=== PATIENT | female | born 1970 | race Caucasian/White ===

== ENCOUNTER 2017-04-12 09:35 | Emergency (ER) | payer BC ==
[2017-04-12 11:08] VITALS: BP 125/88
[2017-04-12] MEDS ORDERED: Acetaminophen TAB* 325 MG PO ONE (11:12)
--- NOTE | 2017-04-12 11:22 | UC ---
FLU HPI - HPI Summary HPI Summary: 46F presents with fever, muscle aches, cough, sore throat, and ear pain since Saturday. Her symptoms continue to get worst. She took ibuprofen and nyquil. She has no medical conditions. She states her lungs feel tight with congestion. She states that she feels awful and has no appetite. She states her throat is bothering her the most. - History of Current Complaint Chief Complaint: UCGeneralIllness Stated Complaint: SORE THROAT,FEVER,CHILLS Time Seen by Provider: 04/12/17 11:06 Hx Last Menstrual Period: 03/24/17 Pain Intensity: 10 - Allergy/Home Medications Allergies/Adverse Reactions: Allergies Allergy/AdvReac Type Severity Reaction Status Date / Time No Known Allergies Allergy Verified 04/12/17 11:06 Home Medications: Home Medications Ibuprofen TAB* [Motrin TAB* 800 MG] 800 mg PO ONCE 04/12/17 [History Confirmed 04/12/17] PMH/Surg Hx/FS Hx/Imm Hx Endocrine History: Other Other Endocrine History: no DM Respiratory History: Other Other Respiratory History: no asthma - Surgical History Surgical History: Yes Surgery Procedure, Year, and Place: Tonsillectomy, 1987, [place] - Family History Known Family History: Positive: None, Diabetes, Other - CANCER - Social History Alcohol Use: Occasionally Substance Use Type: None Smoking Status (MU): Former Smoker Type: Cigarettes Amount Used/How Often: 1/2 PPD Length of Time of Smoking/Using Tobacco: 26 Years Have You Smoked in the Last Year: No When Did the Patient Quit Smoking/Using Tobacco: ~2013 - Immunization History Most Recent Influenza Vaccination: Not the 2014/2015 Season Most Recent Tetanus Shot: UNKNOWN Review of Systems Constitutional: Fever ENT: Sore Throat, Ear Ache, Nasal Discharge Respiratory: Shortness Of Breath, Cough Cardiovascular: Negative All Other Systems Reviewed And Are Negative: Yes Physical Exam Triage Information Reviewed: Yes Appearance: Ill-Appearing Vital Signs: Initial Vital Signs Temp 102.3 F 04/12/17 11:04 Pulse 94 04/12/17 11:04 Resp 18 04/12/17 11:04 BP 125/88 04/12/17 11:04 Pulse Ox 100 04/12/17 11:04 Vital Signs Reviewed: Yes Eyes: Positive: Conjunctiva Clear ENT: Positive: Pharyngeal erythema, TMs normal, Uvula midline, Other - soft palate symmetric. Negative: Tonsillar swelling, Tonsillar exudate, Trismus, Muffled voice Neck: Positive: Supple, Nontender, No Lymphadenopathy Respiratory: Positive: Lungs clear, Normal breath sounds Cardiovascular: Positive: RRR Abdomen Description: Positive: Nontender, Soft Bowel Sounds: Positive: Present Musculoskeletal Exam: Normal Neurological Exam: Normal Psychological Exam: Normal Psychological: Positive: Decreased Age Appropriate Behavior Flu Course/Dx - Course Course Of Treatment: 46F presents with fever, muscle aches, cough, sore throat, and ear pain since Saturday. Her symptoms continue to get worst. She took ibuprofen and nyquil. She has no medical conditions. She states her lungs feel tight with congestion. She states that she feels awful and has no appetite. She states her throat is bothering her the most. on exam pharynx erythema. uvula midline, lungs CTA. flu pos. will treat with tamiflu and decadron and magic mouth wash for the sore throat. patient requested tessalon. will have follow up with primary about pre-htn blood pressure at this time as may be due to illness. patient understand and agrees with plan. - Differential Dx/Diagnosis Differential Diagnosis/HQI/PQRI: Influenza, Pneumonia, Upper Respiratory Infection Provider Diagnoses: influenza b Discharge - Discharge Plan Condition: Good Disposition: HOME Prescriptions: Albuterol HFA INHALER* [Ventolin HFA Inhaler*] 1 puff INH Q4H PRN #1 mdi PRN Reason: Cough Benzonatate CAP* [Tessalon 100 MG CAP*] 100 mg PO TID #21 cap Dexamethasone TAB* [Decadron TAB*] 4 mg PO DAILY #5 tab Magic Mouth Was-DANYELL/MAAL/LIDO* 5 ml SWISH SPIT QID #100 ml Oseltamivir CAP* [Tamiflu CAP*] 75 mg PO BID #10 cap Patient Education Materials: Influenza (ED) Forms: *Work Release Referrals: Roni Everett MD [Primary Care Provider] - Additional Instructions: Take Tamiflu twice for 5 days first dose given in ED Take Tylenol and ibuprofen for muscle aches and fever every 6 hours Take steroid once a day for 5 days Take inhaler every 4-6 hours for cough Take tessalon three times a day for cough Magic mouth wash 5ml four times a day for sore throat Saline rinse can be used multiple times a day for nasal congestion Use humidifier in room or place bowls of warm water around room for cough Try to drink fluids every hour and eat a small snack every 3 hours Follow up with primary within 5 days Return to ED if develop any new or worsening symptoms
== END 2017-04-12 11:48 | disposition home or self-care (01) ==
LOC: UCCORT 09:35
DX: J10.1 Influenza due to other identified influenza virus with other respiratory manifestations (principal)
CPT/HCPCS: 87502; 99212; A9270-GY; G0463

== ENCOUNTER 2019-03-08 16:18 | Emergency (ER) | payer BC ==
[2019-03-08 16:40] VITALS: BP 125/81
--- NOTE | 2019-03-08 16:50 | UC ---
Skin Complaint HPI - HPI Summary HPI Summary: Itchy rash x 2 weeks, spreading. Tried OTC antifungal. - History of Current Complaint Chief Complaint: UCSkin Stated Complaint: RASH Hx Obtained From: Patient Hx Last Menstrual Period: 02/17/19 ?: No Onset/Duration: Sudden Onset, Lasting Weeks - 2, Worse Since - onset Timing: Constant Onset Severity: Mild Current Severity: Mild Pain Intensity: 0 Location: Discrete - neck, arms, legs, small areas, < 1 cm. Character: Pruritus, Redness Aggravating Factor(s): Nothing Alleviating Factor(s): Nothing Associated Signs & Symptoms: Positive: Rash. Negative: Nausea, Vomiting, Numbness, Diaphoresis, Weakness, Shivering, Fever, Chills, Cough, Wheezing, Chest Pain, Hoarseness, Throat Tightening, Abdominal Pain, Syncope, Drainage - Allergy/Home Medications Allergies/Adverse Reactions: Allergies Allergy/AdvReac Type Severity Reaction Status Date / Time No Known Allergies Allergy Verified 03/08/19 16:36 PMH/Surg Hx/FS Hx/Imm Hx Respiratory History: Pneumonia - Surgical History Surgical History: Yes Surgery Procedure, Year, and Place: Tonsillectomy, 1987, [place] - Family History Known Family History: Positive: Cardiac Disease, Hypertension, Diabetes, Other - CANCER - Social History Occupation: Employed Full-time Lives: With Family Alcohol Use: Weekly Substance Use Type: None Smoking Status (MU): Former Smoker Type: Cigarettes Amount Used/How Often: 1/2 PPD Length of Time of Smoking/Using Tobacco: 26 Years Have You Smoked in the Last Year: No When Did the Patient Quit Smoking/Using Tobacco: ~2013 - Immunization History Most Recent Influenza Vaccination: Not the 2014/2015 Season Most Recent Tetanus Shot: UNKNOWN Review of Systems All Other Systems Reviewed And Are Negative: Yes Skin: Positive: Rash Physical Exam Triage Information Reviewed: Yes Appearance: Well-Appearing, No Pain Distress, Well-Nourished Vital Signs: Initial Vital Signs Temp 98.7 F 03/08/19 16:37 Pulse 88 03/08/19 16:37 Resp 18 03/08/19 16:37 BP 125/81 03/08/19 16:37 Pulse Ox 99 03/08/19 16:37 Vital Signs Reviewed: Yes Eyes: Positive: Conjunctiva Clear ENT: Positive: Pharynx normal, Nasal congestion - with allergic changes, TMs normal Neck exam: Normal Respiratory Exam: Normal Cardiovascular Exam: Normal Musculoskeletal Exam: Normal Neurological Exam: Normal Psychological Exam: Normal Skin: Positive: Rashes - erythematous patches on the neck, inner elbows and lower legs. Course/Dx - Differential Diagnoses - Skin Complaint Differential Diagnoses: Cellulitis, Drug Rash, Eczema, Tinea - Diagnoses Provider Diagnosis: Nummular eczema Discharge ED - Sign-Out/Discharge Documenting (check all that apply): Patient Departure All imaging exams completed and their final reports reviewed: No Studies - Discharge Plan Condition: Stable Disposition: HOME Prescriptions: Betamethasone Dipropionate 2 gm TOPICAL BID 30 Days #50 gm Patient Education Materials: Eczema (ED) Referrals: Roni Everett MD [Primary Care Provider] - Additional Instructions: consider coconut oil after bathing. - Billing Disposition and Condition Condition: STABLE Disposition: Home
== END 2019-03-08 17:08 | disposition home or self-care (01) ==
LOC: UCCORT 16:18
DX: L30.0 Nummular dermatitis (principal); Z87.891 Personal history of nicotine dependence
CPT/HCPCS: 99212; G0463